=== PATIENT | male | born 1970 | race Caucasian/White ===

== ENCOUNTER 2021-05-22 15:56 | Emergency (ER) | payer BC ==
[~2021-05-22] VITALS: Ht 177.8 cm; Wt 74.8 kg
[2021-05-22 16:14] VITALS: BP_SYST 12; BP_SYST 125; BP_DIAS 81
[2021-05-22] MEDS ORDERED: OMEP40EC24 PO (17:15)
[2021-05-22 18:44] VITALS: BP 122/55
--- NOTE | 2021-05-22 18:46 | NUR ---
NO NURSING CARE RENDERED
--- NOTE | 2021-05-22 18:48 | NUR ---
Patient discharged with v/s stable. Written and verbal after care instructions given and explained. Patient alert, oriented and verbalized understanding of instructions. Ambulatory with steady gait. All questions addressed prior to discharge. ID band removed. Patient advised to follow up with PMD. Rx of OMEPRAZOLE given. Patient educated on indication of medication including possible reaction and side effects. Opportunity to ask questions provided and answered.
== END 2021-05-22 18:48 | disposition home or self-care (01) ==
LOC: MED 15:56
DX: R07.9 Chest pain, unspecified (principal)
CPT/HCPCS: 93005; 99283

== ENCOUNTER 2023-09-22 15:42 | Emergency (ER) | payer BC ==
[~2023-09-22] VITALS: Ht 259.1 cm; Wt 59.0 kg
[~2023-09-22 15:42] MED LIST: OMEP40EC24 PO
[2023-09-22 16:07] VITALS: BP 139/76; PULSE 89; RESP 18; TEMP 98; O2SAT 98
[2023-09-22] MEDS ORDERED: NAPR-1704 PO (17:46)
== END 2023-09-22 18:04 | disposition home or self-care (01) ==
LOC: MED 15:42
DX: S80.02XA Contusion of left knee, initial encounter (principal); X58.XXXA Exposure to other specified factors, initial encounter; Y93.89 Activity, other specified; Y92.89 Other specified places as the place of occurrence of the external cause; Y99.8 Other external cause status
CPT/HCPCS: 73562; 99283